=== PATIENT | female | born 1995 | race African-American/Black ===

== ENCOUNTER 2016-07-30 12:11 | Emergency (ER) | payer OTHER ==
[~2016-07-30] VITALS: Ht 180.3 cm; Wt 75.0 kg
[~2016-07-30 12:11] MED LIST: DICL50 PO; IBUP400T20 PO; ZOFR4TAB3 SL
[2016-07-30 12:13] VITALS: BP 124/73; PULSE 100; RESP 20; TEMP 99.9; O2SAT 98
[2016-07-30] MEDS ORDERED: SODIUM CHLOR 0.9% 1000 ML INJ 1,000 ML IV ONE (13:10)
[2016-07-30] MEDS ORDERED: MECLIZINE HCL 25 MG TAB PO ONE (13:15)
[2016-07-30] MEDS ORDERED: ONDANSETRON HCL 4 MG/2 ML VIAL IVP ONE (13:15)
[2016-07-30] MEDS ORDERED: KETOROLAC TROMETHAMINE 30 MG/ML (IVP) VIAL IV PUSH ONE (13:15)
[2016-07-30] MEDS ORDERED: SODIUM CHLORIDE 0.9% FLUSH 5 ML FLUSH IVF PRN (13:15)
--- NOTE | 2016-07-30 13:15 | PD ---
HPI Chief Complaint: Dizziness Time Seen by Provider: 13:04 Travel History International Travel<30 days: No Contact w/Intl Traveler<30days: No Traveled to known affect area: No History of Present Illness HPI 21yo F with no PMH presents to the ED with c/o spinning, headache, cough, nasal congestion, nausea for 4-5 days. States the spinning is worst when she gets up. +Nonbloody diarrhea today. +Sick contact, boyfriend has URI. Denies any fever, rash, chest pain, sob, vomiting, abdominal pain, urinary complaints, focal weakness or numbness. Took over the counter flu medication and did not work. PFSH Past Medical History Diminished Hearing: No Headaches: Yes Immunizations Current: No Tetanus Vaccination: Unknown Influenza Vaccination: No ?: Not Menopausal: No Past Surgical History Surgical History: No Previous Surgery Social History Alcohol Use: Yes (SOCIAL) Tobacco Use: No Substance Use: No Allergies-Medications (Allergen,Severity, Reaction): Coded Allergies: Amoxicillin (Verified Allergy, Severe, Anaphylaxis, 10/27/15) Reported Meds & Prescriptions Reported Meds & Active Scripts Active Zofran Odt (Ondansetron Odt) 4 Mg Tab 4 Mg SL Q6HR PRN Acetaminophen 500 Mg Cap 500 Mg PO Q4-6H PRN Review of Systems Except as stated in HPI: all other systems reviewed are Neg Physical Exam Narrative GENERAL: 21yo F not in distress. SKIN: Warm and dry. HEAD: Atraumatic. Normocephalic. +TTP left maxillary sinus. EYES: Pupils equal and round. No scleral icterus. No injection or drainage. ENT: Ears: TM wnl bilaterally. Throat: Clear. Uvula midline. No exudate or erythema. No nasal bleeding or discharge. Mucous membranes pink and moist. NECK: Trachea midline. No JVD. CARDIOVASCULAR: Regular rate and rhythm. No murmur appreciated. RESPIRATORY: No accessory muscle use. Clear to auscultation. Breath sounds equal bilaterally. GASTROINTESTINAL: Abdomen soft, non-tender, nondistended. No rebound tenderness or guarding. MUSCULOSKELETAL: No obvious deformities. No clubbing. No cyanosis. No edema. NEUROLOGICAL: Awake and alert. No obvious cranial nerve deficits. Motor grossly within normal limits. Normal speech. PSYCHIATRIC: Appropriate mood and affect; insight and judgment normal. Data Data Last Documented VS Vital Signs Date Time Temp Pulse Resp B/P Pulse Ox O2 Delivery O2 Flow Rate FiO2 07/30/16 13:30 16 98 Room Air 07/30/16 12:13 99.9 100 124/73 Orders Electrocardiogram (07/30/16 ) Basic Metabolic Panel (Bmp) (07/30/16 13:10) Ed Urine Pregnancytest Poc (07/30/16 13:10) Complete Blood Count With Diff (07/30/16 13:10) Ecg Monitoring (07/30/16 13:10) Iv Access Insert/Monitor (07/30/16 13:10) Oximetry (07/30/16 13:10) Meclizine (Antivert) (07/30/16 13:15) Ondansetron Inj (Zofran Inj) (07/30/16 13:15) Sodium Chloride 0.9% Flush (Ns Flush) (07/30/16 13:15) Sodium Chlor 0.9% 1000 Ml Inj (Ns 1000 M (07/30/16 13:10) Ketorolac Inj (Toradol Inj) (07/30/16 13:15) Metoclopramide Inj (Reglan Inj) (07/30/16 14:30) Acetaminophen (Tylenol) (07/30/16 14:30) Labs Laboratory Tests Test 07/30/16 13:15 White Blood Count 5.1 TH/MM3 Red Blood Count 4.98 MIL/MM3 Hemoglobin 12.7 GM/DL Hematocrit 38.5 % Mean Corpuscular Volume 77.2 FL Mean Corpuscular Hemoglobin 25.5 PG Mean Corpuscular Hemoglobin 33.0 % Concent Red Cell Distribution Width 14.4 % Platelet Count 172 TH/MM3 Mean Platelet Volume 8.5 FL Neutrophils (%) (Auto) 83.6 % Lymphocytes (%) (Auto) 7.4 % Monocytes (%) (Auto) 8.6 % Eosinophils (%) (Auto) 0.1 % Basophils (%) (Auto) 0.3 % Neutrophils # (Auto) 4.2 TH/MM3 Lymphocytes # (Auto) 0.4 TH/MM3 Monocytes # (Auto) 0.4 TH/MM3 Eosinophils # (Auto) 0.0 TH/MM3 Basophils # (Auto) 0.0 TH/MM3 CBC Comment DIFF FINAL Differential Comment Sodium Level 136 MEQ/L Potassium Level 4.2 MEQ/L Chloride Level 102 MEQ/L Carbon Dioxide Level 27.2 MEQ/L Anion Gap 7 MEQ/L Blood Urea Nitrogen 5 MG/DL Creatinine 0.86 MG/DL Estimat Glomerular Filtration 101 ML/MIN Rate Random Glucose 92 MG/DL Calcium Level 8.4 MG/DL [facility] Medical Decision Making Medical Screen Exam Complete: Yes Emergency Medical Condition: Yes Interpretation(s) Laboratory Tests Test 07/30/16 13:15 White Blood Count 5.1 TH/MM3 (4.0-11.0) Red Blood Count 4.98 MIL/MM3 (4.00-5.30) Hemoglobin 12.7 GM/DL (11.6-15.3) Hematocrit 38.5 % (35.0-46.0) Mean Corpuscular Volume 77.2 FL (80.0-100.0) Mean Corpuscular Hemoglobin 25.5 PG (27.0-34.0) Mean Corpuscular Hemoglobin 33.0 % Concent (32.0-36.0) Red Cell Distribution Width 14.4 % (11.6-17.2) Platelet Count 172 TH/MM3 (150-450) Mean Platelet Volume 8.5 FL (7.0-11.0) Neutrophils (%) (Auto) 83.6 % (16.0-70.0) Lymphocytes (%) (Auto) 7.4 % (9.0-44.0) Monocytes (%) (Auto) 8.6 % (0.0-8.0) Eosinophils (%) (Auto) 0.1 % (0.0-4.0) Basophils (%) (Auto) 0.3 % (0.0-2.0) Neutrophils # (Auto) 4.2 TH/MM3 (1.8-7.7) Lymphocytes # (Auto) 0.4 TH/MM3 (1.0-4.8) Monocytes # (Auto) 0.4 TH/MM3 (0-0.9) Eosinophils # (Auto) 0.0 TH/MM3 (0-0.4) Basophils # (Auto) 0.0 TH/MM3 (0-0.2) CBC Comment DIFF FINAL Differential Comment Sodium Level 136 MEQ/L (136-145) Potassium Level 4.2 MEQ/L (3.5-5.1) Chloride Level 102 MEQ/L (98-107) Carbon Dioxide Level 27.2 MEQ/L (21.0-32.0) Anion Gap 7 MEQ/L (5-15) Blood Urea Nitrogen 5 MG/DL (7-18) Creatinine 0.86 MG/DL (0.50-1.00) Estimat Glomerular Filtration 101 ML/MIN Rate (>89) Random Glucose 92 MG/DL (74-106) Calcium Level 8.4 MG/DL (8.5-10.1) EKG: NSR 90bpm. Normal axis. No ST segment elevation or depression. Differential Diagnosis Sinus headache vs. viral syndrome vs. URI Narrative Course 21yo F with URI symptoms and headache that has no red flags. No focal neurologic deficit, fever, or neck stiffness. Pt also with spinning that may be vertigo. Pt given zofran, toradol, meclizine, NS IVF and headache has improved but still with headache. Pt no longer feels spinning sensation, dizziness or nausea. Will give tylenol and reglan and reevaluate. Labs reviewed, no leukocytosis. BMP unremarkable. Urine negative. Pt reevaluated after reglan and tylenol and headache has resolved. Pt feels better, eating in the ED and wants to go home. Return precautions given. Diagnosis Primary Impression: URI (upper respiratory infection) Qualified Code: J06.9 - Upper respiratory tract infection, unspecified type Patient Instructions: General Instructions Departure Forms: Tests/Procedures Additional Instructions: Please follow up with your PMD in 3-7 days. Return to the ED if symptoms worsen. Med/Other Pt SpecificInfo: Prescription(s) given Scripts Ondansetron Odt (Zofran Odt)4 Mg Tab4 Mg SL Q6HR PRN (Nausea/Vomiting) #6 TAB Ref 0 Prov:Estela Nava DO 07/30/16 Acetaminophen 500 Mg [id number] Mg PO Q4-6H PRN (PAIN SCALE 1 TO 4) #20 CAP Ref 0 Prov:Estela Nava 07/30/16 Disposition: 01 DISCHARGE HOME Condition: Stable Estela Nava DO Jul 30, 2016 13:15
[2016-07-30 13:30] VITALS: RESP 16; O2SAT 98
[2016-07-30 13:36] LABS: AUTOMATED NEUTROPHIL # 4.2 TH/MM3 (1.8-7.7); BASOPHIL % 0.3 % (0.0-2.0); EOSINOPHIL % 0.1 % (0.0-4.0); HEMATOCRIT 38.5 % (35.0-46.0); HEMO FLAGS DIFF FINAL; LYMPH % 7.4 % (9.0-44.0); LYMPHOCYTE # 0.4 TH/MM3 (1.0-4.8); MEAN CELL VOLUME 77.2 FL (80.0-100.0); MEAN CORPUSCULAR HEMOGLOBIN 25.5 PG (27.0-34.0); MONO % 8.6 % (0.0-8.0); NEUT % 83.6 % (16.0-70.0); PLATELET COUNT 172 TH/MM3 (150-450); RED BLOOD COUNT 4.98 MIL/MM3 (4.00-5.30); RED CELL DISTRIBUTION WIDTH 14.4 % (11.6-17.2); WHITE BLOOD COUNT 5.1 TH/MM3 (4.0-11.0)
[2016-07-30 13:52] LABS: BICARBONATE 27.2 MEQ/L (21.0-32.0); POTASSIUM 4.2 MEQ/L (3.5-5.1)
[2016-07-30] MEDS ORDERED: METOCLOPRAMIDE INJ 10 MG in SODIUM CHLORIDE 0.9% INJ 50 ML IV ONE (14:30)
[2016-07-30] MEDS ORDERED: ACETAMINOPHEN 325 MG TAB PO ONE (14:30)
[2016-07-30] MEDS ORDERED: ACET500C PO (14:53)
[2016-07-30] MEDS ORDERED: ZOFR4TAB3 SL (14:54)
[2016-07-30 15:02] VITALS: RESP 16
--- NOTE | 2016-07-31 17:16 | EKG ---
Date Performed: 07/30/2016 Time Performed: 12:33:36 PTAGE: 21 years EKG: Sinus rhythm NORMAL ECG NO PREVIOUS TRACING DOCTOR: Tigre Whitman Interpretating Date/Time 07/31/2016 17:15:52
== END 2016-07-30 15:08 | disposition home or self-care (01) ==
LOC: NEPA 12:11
DX: J06.9 Acute upper respiratory infection, unspecified (principal); R51 Headache; R05 Cough
CPT/HCPCS: 80048; 84703; 85025; 93005; 96361; 96374; 96375; 99284; J1885; J2405; J2765; J7030

== ENCOUNTER 2017-10-07 07:14 | Emergency (ER) | payer OTHER ==
[~2017-10-07] VITALS: Ht 180.3 cm; Wt 86.0 kg
[~2017-10-07 07:14] MED LIST changes: +ACET500C PO; -DICL50 PO; -IBUP400T20 PO
[2017-10-07 07:18] VITALS: BP 140/86; PULSE 98; RESP 16; TEMP 98; O2SAT 100
--- NOTE | 2017-10-07 07:34 | PD ---
HPI Chief Complaint: ENT Complaint Time Seen by Provider: 07:25 Travel History International Travel<30 days: No Contact w/Intl Traveler<30days: No Traveled to known affect area: No History of Present Illness HPI Patient comes emerge department complaining of right ear pain that began approximately an hour prior to arrival. Patient reports pain woke her from her sleep. Describes pain as a throbbing pain in her right ear that radiates inferiorly. Patient reports trying to clean it with a Q-tip prior to coming emergency department with no improvement of symptoms. Denies anything making it worse. Denies any fevers, nausea, vomiting, chest pain, shortness of breath , sore throat, neck pain, , or change in vision. Severity mild PFSH Past Medical History Diminished Hearing: No Headaches: Yes Immunizations Current: No ?: Not LMP: 09/21/17 Menopausal: No Social History Alcohol Use: Yes (SOCIAL) Tobacco Use: No Substance Use: No Allergies-Medications (Allergen,Severity, Reaction): Coded Allergies: amoxicillin (Unverified Allergy, Severe, Anaphylaxis, 10/07/17) Reported Meds & Prescriptions Reported Meds & Active Scripts Active Review of Systems Except as stated in HPI: all other systems reviewed are Neg Physical Exam Narrative GENERAL: Well-developed, overly nourished, in no acute distress, and non-ill appearing. SKIN: Focused skin assessment warm and dry. HEAD: Atraumatic. Normocephalic. EYES: Pupils equal and round. EOMI. No scleral icterus. No injection or drainage. ENT: No nasal bleeding or discharge. Mucous membranes pink and moist. Left tympanic membrane pearly oh. Right tympanic membrane obscured by cerumen. NECK: Trachea midline. No cervical lymphadenopathy. Supple. No nuclear rigidity. RESPIRATORY: No accessory muscle use. No respiratory distress. MUSCULOSKELETAL: No obvious deformities. No clubbing. No cyanosis. No edema. Full range of motion. NEUROLOGICAL: Awake and alert. No obvious cranial nerve deficits. Motor grossly within normal limits. Normal speech. PSYCHIATRIC: Appropriate mood and affect; insight and judgment normal. Data Data Last Documented VS Vital Signs Date Time Temp Pulse Resp B/P (MAP) Pulse Ox O2 Delivery O2 Flow Rate FiO2 10/07/17 07:18 98.0 98 16 140/86 (104) 100 Orders Orders Ibuprofen (Motrin) (10/07/17 07:45) Ear Irrigation (10/07/17 07:32) Ed Discharge Order (10/07/17 09:01) [facility] Medical Decision Making Medical Screen Exam Complete: Yes Emergency Medical Condition: Yes Differential Diagnosis Otitis media, otitis externa, foreign body, cerumen impaction, otalgia Narrative Course Patient in no obvious distress upon re-evaluation. Reevaluation of the right ear canal shows removal of cerumen impaction and tympanic membrane is pearly oh without perforation. Any questions/concerns in reference to patient diagnosis/condition discussed and clarified prior to patient's discharge. Reinforced sheer importance of close follow up with patient's primary physician or primary care clinic. Instructed patient to return to ED immediately, if symptoms return/worsen. Patient showed understanding of above instructions. Further instructions and recommendations were detailed in discharge paperwork. Patient ambulated without difficulty out of ED at discharge. Procedures Procedure Narrative Verbal consent was obtained. Right ear was irrigated using warm water hydrogen peroxide. Cerumen impaction was removed. Patient reports improvement of symptoms. Patient tolerated procedure well. There is no complications. Diagnosis Primary Impression: Impacted cerumen of right ear Referrals: [facility] Patient Instructions: Cerumen Impaction (GEN), General Instructions Additional Instructions: Follow-up with your primary care physician this week for reevaluation. Use over -the-counter Tylenol and ibuprofen as needed for pain control. Follow instructions on the packaging. Use [id number] earwax softener to prevent cerumen impaction in the future. Follow instructions on the package. Return to the emergency department if symptoms get worse. Disposition: 01 DISCHARGE HOME Condition: Stable Jhonny Dos Santos Oct 07, 2017 07:34
[2017-10-07] MEDS ORDERED: IBUPROFEN 800 MG TAB PO ONE (07:45)
== END 2017-10-07 09:28 | disposition home or self-care (01) ==
LOC: NEPD 07:14
DX: H61.21 Impacted cerumen, right ear (principal); Z88.0 Allergy status to penicillin
CPT/HCPCS: 99283